=== PATIENT | male | born 1935 | race Caucasian/White ===

== ENCOUNTER 2022-03-08 09:10 | Outpatient (CLI) | payer MEDICARE, BC, SELFPAY ==
[2022-03-08 14:01] LABS: Chloride* 99 mmol/L (96-114); Potassium* 4.6 mmol/L (3.6-5.1); Sodium* 132 mmol/L (135-149)
[2022-03-08 14:03] LABS: Estimated Glomerular Filt Rate 74.21
[2022-03-08 14:04] LABS: Blood Urea Nitrogen* 15 mg/dL (7-30); Calcium* 9.3 mg/dL (8.4-10.6); Carbon Dioxide* 25 mmol/L (20-32); Glucose* 105 mg/dL (60-115)
== END 2022-03-08 09:11 | disposition home or self-care (01) ==
LOC: LONREF 09:11
PROVIDERS: PCP Family Medicine; Visit Provider Family Medicine
DX: Z00.00 Encounter for general adult medical examination without abnormal findings (principal); I10 Essential (primary) hypertension
CPT/HCPCS: 80048

== ENCOUNTER 2023-04-02 08:46 | Outpatient (CLI) | payer MEDICARE, BC, SELFPAY | END 2023-04-02 08:47 | disposition home or self-care (01) | PROVIDERS: PCP Family Medicine; Visit Provider Family Medicine | DX: I10 Essential (primary) hypertension (principal) | CPT/HCPCS: 80048 ==

== ENCOUNTER 2024-04-15 10:09 | Outpatient (CLI) | payer MEDICARE, BC, SELFPAY | END 2024-04-15 10:10 | disposition home or self-care (01) | PROVIDERS: PCP Family Medicine; Visit Provider Family Medicine | DX: Z00.00 Encounter for general adult medical examination without abnormal findings (principal); I10 Essential (primary) hypertension; Z13.6 Encounter for screening for cardiovascular disorders; Z13.0 Encounter for screening for diseases of the blood and blood-forming organs and certain disorders involving the immune mechanism | CPT/HCPCS: 80048; 80061 ==

== ENCOUNTER 2025-04-20 11:28 | Outpatient (CLI) | payer MEDICARE, BC, SELFPAY | END 2025-04-20 11:29 | disposition home or self-care (01) | PROVIDERS: PCP Family Medicine; Visit Provider Family Medicine | DX: I10 Essential (primary) hypertension (principal); Z79.899 Other long term (current) drug therapy | CPT/HCPCS: 80048; 82607; 84443 ==

== ENCOUNTER 2025-07-20 06:49 | Outpatient (CLI) | payer MEDICARE, BC, SELFPAY ==
--- NOTE | 2025-07-20 07:15 | CRLHL7_ITS ---
For Patients: As a result of the Century Cures Act, medical imaging exams and procedure reports are released immediately into your electronic medical record. You may view this report before your referring provider. If you have questions, please contact your health care provider. INDICATION: Transient ischemic attack. TECHNIQUE: Multiplanar MRI of the brain was performed without the administration of intravenous contrast. COMPARISON: None. FINDINGS: No evidence of acute infarction or intracranial hemorrhage. No edema of mass effect. There are scattered nonspecific T2/FLAIR hyperintensities in the subcortical and periventricular white matter. 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 The ventricles and sulci are prominent and proportionate reflecting mild diffuse brain volume loss. Mild mucosal thickening/secretions in the paranasal sinuses. There intra-ocular lens replacements bilaterally. No significant mastoid effusion. No suspicious marrow signal abnormality. IMPRESSION: 1. No acute intracranial abnormality. 2. Mild nonspecific white matter change that can be seen as sequela of chronic small-vessel ischemia. 3. 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 4. Mild diffuse brain volume loss. Dictated by Nahid Fox MD @ 07/20/2025 8:57:27 AM (Electronically Signed)
--- NOTE | 2025-07-20 10:15 | CRLHL7_ITS ---
For Patients: As a result of the Century Cures Act, medical imaging exams and procedure reports are released immediately into your electronic medical record. You may view this report before your referring provider. If you have questions, please contact your health care provider. CLINICAL HISTORY: Transient cerebral ischemic attack TECHNIQUE: The carotid circulations and the vertebral arteries in the neck were examined with regan-scale ultrasound, color-flow and Doppler spectral analysis. Degrees of stenosis were determined using SRU 2002 Consensus Panel Criteria. FINDINGS: Sonographic images demonstrate bilateral atherosclerotic plaque formation without suspicious soft tissue mass. There was antegrade blood flow demonstrated within the vertebral arteries and the subclavian arteries demonstrated biphasic waveforms. The spectral Doppler tracings of the common carotid, internal and external carotid arteries demonstrate no abnormal turbulence or spectral broadening. There was no significant elevation of peak systolic blood flow which would indicate a hemodynamically-significant stenosis by SRU criteria. The ICA/CCA peak systolic velocity ratio measures 1.4 on the right and 0.2 on the left. IMPRESSION: Less than 50 percent stenosis of the internal carotid arteries. Dictated by Maynor Madrid MD @ 07/20/2025 2:06:55 PM (Electronically Signed)
== END 2025-07-20 06:50 | disposition home or self-care (01) ==
PROVIDERS: PCP Family Medicine; Visit Provider Family Medicine
DX: G45.9 Transient cerebral ischemic attack, unspecified (principal); I67.89 Other cerebrovascular disease; R90.82 White matter disease, unspecified; I69.398 Other sequelae of cerebral infarction; J34.89 Other specified disorders of nose and nasal sinuses; Z96.1 Presence of intraocular lens
CPT/HCPCS: 70551; 93306; 93880